=== PATIENT | female | born 1970 | race Caucasian/White ===

== ENCOUNTER 2017-02-17 20:30 | Emergency (ER) | payer SELFPAY ==
[~2017-02-17] VITALS: Ht 157.5 cm; Wt 58.0 kg
[2017-02-17 21:03] VITALS: BP 99/56; PULSE 92; RESP 16; TEMP 98; O2SAT 98
[2017-02-17 22:28] LABS: AUTOMATED NEUTROPHIL # 1.4 TH/MM3 (1.8-7.7); BASOPHIL % 0.9 % (0.0-2.0); EOSINOPHIL # 0.2 TH/MM3 (0-0.4); EOSINOPHIL % 5.1 % (0.0-4.0); HEMATOCRIT 38.9 % (35.0-46.0); HEMO FLAGS DIFF FINAL; LYMPH % 43.2 % (9.0-44.0); LYMPHOCYTE # 1.5 TH/MM3 (1.0-4.8); MEAN CELL VOLUME 90.7 FL (80.0-100.0); MEAN CORPUSCULAR HGB CONC 34.2 % (32.0-36.0); MONO % 8.1 % (0.0-8.0); NEUT % 42.7 % (16.0-70.0); PLATELET COUNT 225 TH/MM3 (150-450); RED BLOOD COUNT 4.29 MIL/MM3 (4.00-5.30); RED CELL DISTRIBUTION WIDTH 13.6 % (11.6-17.2); WHITE BLOOD COUNT 3.4 TH/MM3 (4.0-11.0)
[2017-02-17 22:43] LABS: ALT (GPT) 50 U/L (10-53); ANION GAP 8 MEQ/L (5-15); AST (GOT) 35 U/L (15-37); BLOOD UREA NITROGEN 11 MG/DL (7-18); CHLORIDE 107 MEQ/L (98-107); GLOMERULAR FILTRATION RATE 88 ML/MIN (>89); POTASSIUM 3.6 MEQ/L (3.5-5.1); SODIUM (NA) 143 MEQ/L (136-145)
[2017-02-17 22:44] LABS: ALCOHOL 198 MG/DL (0-5)
[2017-02-17 22:45] LABS: ALKALINE PHOSPHATASE 105 U/L (45-117); TOTAL BILIRUBIN ADULT 0.4 MG/DL (0.2-1.0)
[2017-02-17 22:54] LABS: BLOOD, URINE NEG (NEG); GLUCOSE,URINE NEG (NEG); KETONE, URINE NEG (NEG); NITRITE,URINE NEG (NEG); URINE COLOR LIGHT-YELLOW (YELLW/STRAW)
[2017-02-17 22:55] LABS: COMMENT (UR) CULT NOT INDICATED; CULTURE IF INDICATED CULT NOT INDICATED
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
[2017-02-18] MEDS ORDERED: ACETAMINOPHEN 325 MG TAB PO ONE ×2 (01:30→17:00)
[2017-02-18] MEDS ORDERED: ACETAMINOPHEN 325 MG TAB ONE (01:39)
[2017-02-18 05:34] VITALS: TEMP 98.3
[2017-02-18 07:32] VITALS: BP 119/73; PULSE 78; RESP 16; TEMP 97.7; O2SAT 100
[2017-02-18 16:45] VITALS: BP 115/68; PULSE 76; RESP 17; TEMP 98.3; O2SAT 99
[2017-02-18 21:24] VITALS: BP 138/77; PULSE 63; RESP 18
[2017-02-19 02:06] VITALS: BP 117/68; PULSE 88; RESP 18
[2017-02-19 06:24] VITALS: BP 111/70; PULSE 105; RESP 18
[2017-02-19 09:20] VITALS: BP 111/70; PULSE 105; RESP 18
--- NOTE | 2017-02-19 09:21 | PD ---
Physical Exam Time Seen by Provider: 09:19 JOSSELYN Meneses, has evaluated the patient, lifted the Ron act and patient will be discharged. Her is coming to pick her up. Data Data Last Documented VS Vital Signs Date Time Temp Pulse Resp B/P (MAP) Pulse Ox O2 Delivery O2 Flow Rate FiO2 02/19/17 06:24 105 18 111/70 (84) 02/18/17 16:45 98.3 99 Room Air Orders Orders Complete Blood Count With Diff (02/17/17 21:35) Comprehensive Metabolic Panel (02/17/17 21:35) Urinalysis - C+S If Indicated (02/17/17 21:35) Psych Screen (02/17/17 21:35) Drug Screen, Random Urine (02/17/17 21:35) Alcohol (Ethanol) (02/17/17 21:35) Acetaminophen (Tylenol) (02/18/17 01:39) Acetaminophen (Tylenol) (02/18/17 01:30) Diet Regular Basic (02/18/17 Breakfast) Acetaminophen (Tylenol) (02/18/17 17:00) Hydroxyzine Pamoate (Vistaril) (02/18/17 23:00) Diet Regular Basic (02/19/17 Breakfast) Labs Laboratory Tests Test 02/17/17 21:50 White Blood Count 3.4 TH/MM3 Red Blood Count 4.29 MIL/MM3 Hemoglobin 13.3 GM/DL Hematocrit 38.9 % Mean Corpuscular Volume 90.7 FL Mean Corpuscular Hemoglobin 31.0 PG Mean Corpuscular Hemoglobin Concent 34.2 % Red Cell Distribution Width 13.6 % Platelet Count 225 TH/MM3 Mean Platelet Volume 7.1 FL Neutrophils (%) (Auto) 42.7 % Lymphocytes (%) (Auto) 43.2 % Monocytes (%) (Auto) 8.1 % Eosinophils (%) (Auto) 5.1 % Basophils (%) (Auto) 0.9 % Neutrophils # (Auto) 1.4 TH/MM3 Lymphocytes # (Auto) 1.5 TH/MM3 Monocytes # (Auto) 0.3 TH/MM3 Eosinophils # (Auto) 0.2 TH/MM3 Basophils # (Auto) 0.0 TH/MM3 CBC Comment DIFF FINAL Differential Comment Urine Color LIGHT-YELLOW Urine Turbidity CLEAR Urine pH 5.0 Urine Specific [place] 1.004 Urine Protein NEG mg/dL Urine Glucose (UA) NEG mg/dL Urine Ketones NEG mg/dL Urine Occult Blood NEG Urine Nitrite NEG Urine Bilirubin NEG Urine Urobilinogen LESS THAN 2.0 MG/DL Urine Leukocyte Esterase NEG Microscopic Urinalysis Comment CULT NOT INDICATED Blood Urea Nitrogen 11 MG/DL Creatinine 0.71 MG/DL Random Glucose 91 MG/DL Total Protein 7.7 GM/DL Albumin 4.1 GM/DL Calcium Level 8.3 MG/DL Alkaline Phosphatase 105 U/L Aspartate Amino Transf (AST/SGOT) 35 U/L Alanine Aminotransferase (ALT/SGPT) 50 U/L Total Bilirubin 0.4 MG/DL Sodium Level 143 MEQ/L Potassium Level 3.6 MEQ/L Chloride Level 107 MEQ/L Carbon Dioxide Level 28.0 MEQ/L Anion Gap 8 MEQ/L Estimat Glomerular Filtration Rate 88 ML/MIN Urine Opiates Screen NEG Urine Barbiturates Screen NEG Urine Amphetamines Screen NEG Urine Benzodiazepines Screen NEG Urine Cocaine Screen NEG Urine Cannabinoids Screen NEG Ethyl Alcohol Level 198 MG/DL MDM Supervised Visit with [facility]: No Narrative Course JOSSELYN Roche, has evaluated the patient, lifted the Ron act and patient will be discharged. Her is coming to pick her up. Patient contracts safety. Denies suicidal or homicidal ideations. Patient will be provided community resource packet to [facility] for follow-up. Has friends and family for support. Patient is medically cleared for discharge. Diagnosis Primary Impression: Medical clearance for psychiatric admission Additional Impression: Alcohol intoxication Qualified Codes: F10.920 - Alcohol use, unspecified with intoxication, uncomplicated Referrals: [facility] (Out patient) [facility] Primary Care Physician Psychiatrist [facility] Patient Instructions: Abuse of Alcohol (ED), Alcohol Dependence (ED), Alcohol Intoxication (ED), General Instructions Additional Instruction: Contract safety to your self and others Stop drinking alcohol Follow-up with psychiatry Follow-up with primary care provider Follow-up with Sy Sellers Return to the emergency department immediately with worsening of symptoms Med/Other Pt SpecificInfo: No Meds Exist/No RX given Disposition: 01 DISCHARGE HOME Condition: Stable Nat Lion Feb 19, 2017 09:21
--- NOTE | 2017-02-19 09:35 | PD ---
History of Present Illness Chief Complaint: Psychiatric Symptoms Time Seen by Provider: 09:10 Travel History International Travel<30 Days: No Contact w/Intl Traveler<30days: No Known affected area: No Legal Status Legal Status: Ron Act Ron Act Signed By: Bryson Womack Ron Act Comment: 02/17/2017 1424 PM OFC. Albert SARGENT #[id number] CASE #[id number] History of Present Illness: History of Present Illness Patient is a 46-year-old female with no psychiatric history and history of substance use disorder who brought into the emergency Department under Ron act initiated by law enforcement. for psychiatric evaluation. Per the Ron act report patient was allegedly attempting to jump off of a balcony after arguing with her and while intoxicated. Her BAl on arrival to ED was 198. Patient denies attempting to jump off of the balcony and she denies any suicidal ideation, intent or jarrett. She states that she is here in [facility] for the weekend and she had been drinking since early in the day. Her and her were standing in the balcony and were talking very loud and she does admit that she made gestures like she was going to jump in order to make her stop arguing but she denies that this was a suicide attempt. She states that they were both intoxicated and that it was a very poor decision on their part. She also acknowledges 2 week relapse. 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 I know this is a result of a relapse but I will never hurt myself. It goes against everything I know and belief in ". She has 9 years of sobriety and started drinking 2 weeks ago. No previous contact with [facility] psychiatry. PFSH Past Medical History Medical History: Denies Significant Hx ?: Not LMP: n/a Past Surgical History Surgical History: No Previous Surgery Psychiatric History Psychiatric History Hx Psychiatric Treatment: Denies any History of Inpatient Treatment: No Guns or firearms in home: No Social History Born in [place]. x 4 years. Works at [employer] x 1 and 1/2 year. 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 Hx Alcohol Use: Yes Hx Tobacco Use: No Hx Substance Use: No Substance Use Type: Alcohol, Cocaine Other Substances Used: hx of being sober for 9 yrs Hx of Substance Use Treatment: No Family Psychiatric History Negative Allergies-Medications (Allergen,Severity, Reaction): Coded Allergies: No Known Allergies (Unverified , 02/17/17) Review of Systems Except as stated in HPI: all other systems reviewed are Neg Mental Status Examination Appearance: Appropriate Consciousness: Alert Orientation: x4 Motor Activity: Normal gait Speech: Unremarkable (Communicated in U[place]) Language: Adequate Fund of Knowledge: Adequate Attention and Concentration: Adequate Memory: Unremarkable Mood: Appropriate Affect: Appropriate Thought Process & Associations: Intact Thought Content: Appropriate Hallucination Type: None Delusion Type: None Suicidal Ideation: No Suicidal Plan: No Suicidal Intention: No Homicidal Ideation: No Homicidal Plan: No Homicidal Intention: No Insight: Adequate Judgment: Adequate MDM Medical Decision Making Medical Record Reviewed: Yes Assessment/Plan Patient is a 46-year-old female with no psychiatric history and history of substance use disorder who brought into the emergency Department under Ron act initiated by law enforcement. for psychiatric evaluation. Per the Ron act report patient was allegedly attempting to jump off of a balcony after arguing with her and while intoxicated. Her BAl on arrival to ED was 198. Patient was allowed to sober up clinically and presented no behavioral concerns and no suicidality. She denies any suicidal or homicidal ideation, intent or plan. There is no psychosis, no rey. No objective symptoms of depression. Patient with adequate protective factors including her arik. Does not meet Ron act criteria. She is requesting discharge. Lift BA. Clear psychiatrically for discharge Orders Orders Acetaminophen (Tylenol) (02/18/17 17:00) Hydroxyzine Pamoate (Vistaril) (02/18/17 23:00) Diet Regular Basic (02/19/17 Breakfast) Results Vital Signs Date Time Temp Pulse Resp B/P (MAP) Pulse Ox O2 Delivery O2 Flow Rate FiO2 02/19/17 09:20 105 18 111/70 (84) Room Air 02/19/17 06:24 105 18 111/70 (84) 02/19/17 02:06 88 18 117/68 (84) 02/18/17 21:24 63 18 138/77 (97) 10/8/17 17:53 16 02/18/17 16:45 98.3 76 17 115/68 (84) 99 Room Air Diagnosis Primary Impression: Alcohol dependence with acute alcoholic intoxication Psychiatrically Cleared: Yes Referrals: [facility] (Out patient) [facility] Primary Care Physician Psychiatrist [facility] Patient Instructions: General Instructions, Alcohol Intoxication (ED), Abuse of Alcohol (ED), Alcohol Dependence (ED) Additional Instructions: Contract safety to your self and others Stop drinking alcohol Follow-up with psychiatry Follow-up with primary care provider Follow-up with Sy Green/[facility] Return to the emergency department immediately with worsening of symptoms Disposition: 01 DISCHARGE HOME Condition: Stable Kaley ClarosP Feb 19, 2017 09:35
== END 2017-02-19 10:00 | disposition home or self-care (01) ==
LOC: NEPD 20:30 → NEPJ 02-19 10:00
DX: F10.229 Alcohol dependence with intoxication, unspecified (principal); Y90.6 Blood alcohol level of 120-199 mg/100 ml
CPT/HCPCS: 80053; 80307; 81001; 85025; 99284